=== PATIENT | male | born 1955 | race Caucasian/White ===

== ENCOUNTER → 2017-05-22 | Outpatient (CLI) | payer BC ==
--- NOTE | ~2017-05-22 | PFT ---
[id number] [facility] [address]. [place], [place] [address] [id number] O MR#: [id number] NAME: JERONIMO PULIDO JR ROOM: SEX: M STUDY DATE/TIME: 05/23/2017 : 1955 AGE: 61 STUDY DESCRIPTION: Attending Physician: Angie Smith M.D. Referring Physician: Angie Smith M.D. Primary Care Physician: Jay Sandoval M.D. PULMONARY DIAGNOSTIC REPORT EXAM Pulmonary function test FINDINGS Spirometry is consistent with a restrictive defect. There is no significant response to bronchodilators. Flow-volume loop does suggest the possibility of an obstructive defect. Lung volumes suggest airtrapping and ERV is reduced which can be seen in obesity. Diffusion capacity is normal. Note there is no evidence of a restrictive defect by lung volumes. Dictated by... Fam Sandhu M.D. WOL/cf TD: 05/23/2017 17:13 JOB #: [id number] PULMONARY DIAGNOSTIC REPORT Page 1 of 1
== END | disposition home or self-care (01) ==
LOC: CECH 09:27 → CRC 11:00 → CECH 13:45
DX: R06.02 Shortness of breath (principal); R06.00 Dyspnea, unspecified; I34.0 Nonrheumatic mitral (valve) insufficiency; I51.7 Cardiomegaly
CPT/HCPCS: 93306; 94060